=== PATIENT | male | born 1955 | race Caucasian/White ===

== ENCOUNTER → 2021-12-25 11:32 | Outpatient (CLI) | payer MEDICARE, SELFPAY ==
--- NOTE | 2021-12-25 | DI.RAD.S_ITS ---
PROCEDURE: XR CHEST 2V INDICATIONS: VIRAL PNEUMONIA TECHNIQUE: 2 views of the chest were acquired. COMPARISON: None. FINDINGS: Surgical changes and devices: None. Lungs and pleura: Trace airspace opacities are present at the left lung base. The lungs are otherwise clear. No pleural effusion or pneumothorax. Mediastinum: Mediastinal contours are normal. Heart size is normal. Bones and chest wall: No suspicious bony abnormalities. Soft tissues appear unremarkable. IMPRESSION: Trace left basilar pulmonary radiopacities likely within the lingula. Differential considerations include atelectasis, aspiration, and infection. Dictated by: Rosalba Álvarez M.D. on 12/25/2021 at 15:37 Approved by: Rosalba Álvarez M.D. on 12/25/2021 at 15:37
== END ==
PROVIDERS: PCP Internal Medicine; Referring Provider Internal Medicine; Visit Provider Internal Medicine
DX: J12.9 Viral pneumonia, unspecified (principal)
CPT/HCPCS: 71046

== ENCOUNTER → 2022-05-22 16:33 | Outpatient (CLI) | payer MEDICARE, SELFPAY ==
--- NOTE | 2022-05-22 16:38 | DI.RAD.S_ITS ---
PROCEDURE: XR CHEST 2V INDICATIONS: SOB TECHNIQUE: 2 views of the chest were acquired. COMPARISON: [facility], , XR CHEST 2V, 12/25/2021, 12:00. FINDINGS: Surgical changes and devices: Right chest wall port catheter, tip of which is in the mid SVC. Lungs and pleura: Lungs are clear. No pleural effusions or pneumothorax. Mediastinum: Mediastinal contours are normal. Heart size is normal. Bones and chest wall: No suspicious bony abnormalities. Soft tissues appear unremarkable. IMPRESSION: No acute process. Dictated by: Yue So M.D. on 05/22/2022 at 16:55 Approved by: Yue So M.D. on 05/22/2022 at 16:57
== END ==
PROVIDERS: PCP Internal Medicine; Referring Provider Internal Medicine; Visit Provider Internal Medicine
DX: R06.02 Shortness of breath (principal)
CPT/HCPCS: 71046